=== PATIENT | male | born 1940 | race Caucasian/White ===

== ENCOUNTER → 2016-07-25 | Outpatient (CLI) | payer OTHER ==
--- NOTE | 2016-07-25 16:32 | DI ---
XR KNEE CMPT 4 OR MORE VWS,07/25/2016 2:07 PM: Clinical History: Right knee pain. Previous Exam: None at this facility. Findings: 4 views of the right knee are obtained, and demonstrate anatomic alignment without fractures. There i s loss of joint space involving the medial compartment. There is calcification within the lateral and medial menisci. There is a small right knee joint effusion. Impression: Mild early degenerative osteoarthritis manifested by loss of medial joint space. Calcifications in the region of the menisci most consistent with hydroxyapatite deposition disease.
== END ==
LOC: ORTHO 14:10
PROVIDERS: ATTEND Physician Assistant
DX: M25.561 Pain in right knee (principal); M25.461 Effusion, right knee; M17.11 Unilateral primary osteoarthritis, right knee; M11.061 Hydroxyapatite deposition disease, right knee; F17.290 Nicotine dependence, other tobacco product, uncomplicated
CPT/HCPCS: 73564

== ENCOUNTER → 2016-08-24 | Outpatient (CLI) | payer OTHER | LOC: MMPC 10:00 | PROVIDERS: ATTEND Physician Assistant | DX: M25.561 Pain in right knee (principal); M17.11 Unilateral primary osteoarthritis, right knee | CPT/HCPCS: 99213; G0463 ==

== ENCOUNTER → 2016-08-28 | Outpatient (CLI) | payer OTHER ==
--- NOTE | 2016-08-28 13:11 | DI ---
MRI LOW EXTREMITY JNT W/O CN,08/28/2016 8:40 AM: Clinical History: Fusion of right knee joint Previous Exam: Plain films performed July 25, 2016 Findings: Multiplanar MR images are obtained through the right knee without contrast. Bony alignment is anatomi c. There is sclerosis involving the weightbearing surface of the medial femoral condyle. There is als o some associated marrow edema of the medial femoral condyle. There is some mild thinning of the articular cartilage of the medial patellar facet. There is thinnin g of the articular cartilage of the lateral compartment as well without any full-thickness defects. T here is some complete thickness chondromalacia involving the anterior portion of the medial femoral c ondyle medially with some subchondral cyst formation as well. There is a large knee joint effusion. There is a complex tear of the posterior horn of the medial meniscus extending into the body of the m edial meniscus. The anterior and posterior cruciate ligaments are intact. There is some mild edema involving the free edge of horn of the lateral meniscus without a definite t ear identified. The anterior and posterior cruciate ligaments are intact. Medial and lateral collateral ligaments are also intact. The major vascular flow voids are unremarkable. Signal within the musculature is also unremarkable. Impression: 1. Large knee joint effusion. 2. Full-thickness osteochondral defects within the medial compartment with chondral edema. 3. Complex tear of the posterior horn and body of the medial meniscus. This may be postsurgical as th is ligament mastectomy.
== END ==
LOC: MRI 08:36
PROVIDERS: ATTEND Physician Assistant
DX: M25.461 Effusion, right knee (principal); S83.231A Complex tear of medial meniscus, current injury, right knee, initial encounter
CPT/HCPCS: 73721

== ENCOUNTER 2017-08-23 16:10 | Observation (INO) ==
[2017-08-23] MEDS ORDERED: LABETALOL 20 MG/4 ML (5 MG/1 ML) SYRINGE IVP ONE (16:46)
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
[2017-08-23 17:14] LABS: VENOUS PH 7.51 (7.32-7.42)
[2017-08-23 17:23] LABS: BILIRUBIN,URINE NEGATIVE (NEG); CLARITY,URINE CLEAR (CLEAR); COLOR,URINE YELLOW (Y); GLUCOSE, URINE (UA) NEGATIVE (NEG); OCCULT BLOOD,URINE NEGATIVE (NEG); PROTEIN,URINE NEGATIVE (NEG); UROBILINOGEN,URINE 0.2 EU/dL (0.2)
[2017-08-23 17:29] LABS: URINE SAMPLE TYPE CLEAN CATCH URINE
--- NOTE | 2017-08-23 17:38 | PDOC ---
HPI - History of Present Illness History of Present Illness: This very nice 77-year-old gentleman with no significant past medical history was sent by the clinic to the ER for increased shortness of breath he underwent antibiotic therapy and 2 rounds of prednisone and because of strep throat diagnosis earlier in the month he was also given neb treatments but these made him worse he is also noticed some increased swelling in his legs lately in the ER as blood pressure was elevated in the 180 range and also only sleep in 15-20 minutes at a time he constantly wakes up shortness of breath he does admit smoking to about 15 cigars a day he lives about [place] of town and even in the ER he while they were measuring his blood pressure he kept falling asleep. He has settled into his bed his legs have been swelling over the past couple months. He does not want a Silva tonight but tomorrow Past Medical History Tobacco Use: Former Smoker In the Past 12 Months, Have Used or Abuse Any of the Following Substance: None Medication / Allergies Home Medications: Home Medications 3 Medication Instructions Recorded Confirmed Type Acetaminophen [Tylenol] 650 mg PO Q4-6H tab 08/24/16 08/23/17 History Ibuprofen [Advil] 1 tab PO QD tab 08/24/16 08/23/17 History Allergies/Adverse Reactions: Allergies 3 Allergy/AdvReac Type Severity Reaction Status Date / Time albuterol AdvReac SWELLING Verified 08/23/17 17:56 Review of Systems - Respiratory Respiratory: REPORTS: Cough - Cardiovascular Cardiovascular: DENIES: Negative System Review, Chest Pain, Edema, Syncope, Palpitations, Orthopnea, Paroxysmal Nocturnal Dyspnea, Other, See HPI - Gastrointestinal Gastrointestinal / Abdominal: DENIES: Negative System Review, Nausea, Vomiting, Diarrhea, Constipation, Abdominal Pain, Bloody Stool, Poor Appetite, Heartburn, Regurgitation, Bloating, Lactose Intolerance, Melena, Bright Red Blood per Rectum, Other, See HPI Exam - Vitals Vital Signs: Vital Signs Temperature 98.7 F Temperature Source Temporal Artery Scan Pulse Rate [Pulse Oximeter] 56 Respiratory Rate 22 Blood Pressure [Left Arm] 187/102 Pulse Ox 95 Oxygen Delivery Method Room Air Height 5 ft 10 in Weight 243 lb - General General Appearance: No Acute Distress, Cooperative, Disheveled - Head Head Exam: Normal Inspection, Normocephalic, Atraumatic - Eye Eye Exam: POSITIVE: Normal Appearance, PERRL, EOMI, No Scleral Icterus - Respiratory Respiratory Exam: POSITIVE: Decreased Breath Sounds. NEGATIVE: Rales, Rhonci - Cardiovascular Cardiovascular Exam: POSITIVE: RRR, No Murmur, No Clicks, No Gallops, No Rubs, PMI Non-Displaced - GI/Abdominal GI/Abdominal Exam: POSITIVE: Normal Bowel Sounds, Non Tender, Non Distended, Soft, No Masses, No Hepatomegaly, No Splenomegaly, No Organomegaly - Extremities Extremities Exam: POSITIVE: No Clubbing Present, No Cyanosis Present, +2 Edema - Neurological Neurological Exam: POSITIVE: Alert, Oriented x 3, No Facial Droop, Speech Intact / Clear - Psychiatric Psychiatric Exam: POSITIVE: Normal Affect, Normal Mood Assessment and Plan - Patient Problems (1) COPD (chronic obstructive pulmonary disease) Current Visit: Yes Status: Acute Code(s): J44.9 - Chronic obstructive pulmonary disease, unspecified (2) Hypertensive urgency Current Visit: Yes Status: Acute Code(s): I16.0 - Hypertensive urgency (3) Sleep apnea Current Visit: Yes Status: Acute Code(s): G47.30 - Sleep apnea, unspecified - Assessment / Plan Additional Assessment/Plan Details: #1 hypertensive urgency 0.1 and clonidine +10 of Norvasc monitor on telemetry check magnesium level #2 COPD with emphysema we'll order a CAT scan of his chest heavy smoker with cigars #3 sleep apnea most likely severe oxygen #4 to ty this altogether most likely the patient has cor pulmonale with right- sided heart failure with elevated BNP and pulmonary hypertension I will diurese him with Lasix order an echo and most likely will need a sleep study as an outpatient
[2017-08-23] MEDS ORDERED: ACETAMINOPHEN 325 MG TABLET PO PRN (17:48)
[2017-08-23] MEDS ORDERED: CALCIUM CARBONATE 500 MG (TUMS) CHEWABLE TABLET PO PRN (17:48)
[2017-08-23] MEDS ORDERED: DOCUSATE 100 MG CAPSULE PO PRN (17:48)
[2017-08-23] MEDS ORDERED: ONDANSETRON 4 MG/2 ML VIAL IVP PRN (17:48)
[2017-08-23] MEDS ORDERED: LIDOCAINE W/ SODIUM BICARB 0.5 ML SYR SUBD PRN (17:48)
[2017-08-23] MEDS ORDERED: FUROSEMIDE 10 MG/1 ML - 2 ML VIAL IVP ONE (17:48)
[2017-08-23] MEDS ORDERED: CloNIDine Tab 0.1 MG TABLET PO ONE (17:48)
[2017-08-23] MEDS: HEPARIN 5000 UNIT/1 ML SUBCUT SCH (18:28)
--- NOTE | 2017-08-23 18:53 | DI ---
CT CTA Chest Non-Coronary O,08/23/2017 5:38 PM: Clinical History: Shortness of breath and elevated d-dimer. Previous Exam: None at this facility. Findings: Multiple helically acquired CT images are obtained through the chest following a CT angiogram protoco l after intravenous administration of 95 cc of Isovue-370. The pulmonary arteries are normal and symmetric without filling defect or truncation. There is no infiltrate or effusion. Degenerative changes of the thoracic spine are seen. There is no lymphadenopathy. The aorta is unremarkable. Visualized portions of the upper abdomen are unremarkable. Visualized portions of the thyroid are wit hin normal limits. Impression: 1. No evidence of pulmonary embolism.
[2017-08-24] MEDS: HEPARIN 5000 UNIT/1 ML SUBCUT SCH ×3 (02:53→17:44)
[2017-08-24 05:25] LABS: BASOPHILS # (AUTO) 0.02 10*3/UL; BASOPHILS % (AUTO) 0.3 % (0-1); EOSINOPHILS # (AUTO) 0.04 10*3/UL; EOSINOPHILS % (AUTO) 0.5 % (0-8); Hematocrit [HCT] 41.8 % (42.0-52.0); Hemoglobin [HGB] 14.1 g/dL (14.0-18.0); LYMPHOCYTES # (AUTO) 2.31 10*3/uL; MEAN CORPUSCULAR HEMOGLOBIN 32.2 PG (27-31); MEAN CORPUSCULAR HGB CONC 33.7 g/dL (33-37); MEAN CORPUSCULAR VOLUME 95.4 FL (80-90); MEAN PLATELET VOLUME 10.4 FL (7.4-12.2); MONOCYTES # (AUTO) 1.14 10*3/UL (0.3-0.8); MONOCYTES % (AUTO) 14.6 % (5-15); NEUTROPHILS # (AUTO) 4.27 10*3/UL; NEUTROPHILS % (AUTO) 54.8 % (50-80); RED BLOOD COUNT 4.38 10^6/uL (4.70-6.10)
[2017-08-24 05:41] LABS: BLOOD UREA NITROGEN 15 mg/dL (7-22); BUN/CREATININE RATIO 18.75 (6-20)
[2017-08-24 05:43] LABS: PLATELET MORPHOLOGY COMMENT NORMAL MORPHOLOGY (NORM); RBC MORPHOLOGY COMMENT NORMAL MORPHOLOGY (NORM); WBC MORPHOLOGY COMMENT NORMAL MORPHOLOGY (NORM)
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
--- NOTE | 2017-08-24 15:10 | DI ---
MRI Brain WO Contrast,08/24/2017 1:45 PM: Clinical History: Double vision and nystagmus. Previous Exam: None at this facility. Findings: Multiplanar MR images are obtained through the brain without contrast, and demonstrate mild diffuse a ge-related volume loss. There is no hemorrhage nor midline shift. There is no abnormally restricted diffusion. There are scattered areas of increased FLAIR and T2 signal within the periventricular white matter. There is some rightward deviation of the bony nasal septum. The intraorbital structures are unremarkable. The paranasal sinuses are also unremarkable. The major vascular flow voids are within normal limits. Internal auditory canals are unremarkable. The cerebellopontine angles are unremarkable. Impression: Scattered areas of increased FLAIR and T2 signal most consistent with small vessel ischemic changes. No acute intracranial pathology.
--- NOTE | 2017-08-24 15:30 | PT.PROG ---
Progress Note Progress Note: S. Patient stated that he is feeling good, a little dizzy however he agreed to go to the therapy gym. O. patient ambulated 175 feet to the therapy gym, then performed balance activities in the form of; tandem walking x 3 laps, balance grid x 3, balance on uneven surface 2x30 seconds. Patient was left with OT for further therapy. A. Patient struggles with balance activities and required frequent rest breaks to recover from dizziness during activity. Patient would continue to benefit from skilled therapy to increase endurance and balance. P. Continue POC.
[2017-08-24] MEDS: Petrolatum, White Jelly 5 APPLIC/5 GM PACKET TOPICAL SCH ×2 (17:43→20:26)
[2017-08-24] MEDS: POTASSIUM CHLORIDE 20 MEQ TAB PO SCH ×2 (17:44→20:25)
[2017-08-25 00:36] VITALS: RESP 20
[2017-08-25] MEDS: HEPARIN 5000 UNIT/1 ML SUBCUT SCH (02:06)
[2017-08-25] MEDS ORDERED: LISINOPRIL 10 MG TABLET PO ONE (03:03)
[2017-08-25 06:55] LABS: BLOOD UREA NITROGEN 17 mg/dL (7-22); BUN/CREATININE RATIO 24.28 (6-20)
[2017-08-25] MEDS: POTASSIUM CHLORIDE 20 MEQ TAB PO SCH (08:32)
[2017-08-25] MEDS: Petrolatum, White Jelly 5 APPLIC/5 GM PACKET TOPICAL SCH (08:33)
[2017-08-25] MEDS ORDERED: Multivitamin Tab 1 TAB PO SCH (09:00)
--- NOTE | 2017-08-25 09:03 | DCSUMMARY ---
Hospitalization Summary Admit Date: 08/23/2017 Discharge Date: 08/25/17 Hospital Course: Discharge diagnoses 1. Hypertensive urgency 2. Possible sleep apnea 3. Hypokalemia 4. Possible COPD 5. Cholelithiasis 6. Small vessel ischemic changes Hospital course This is a 77 years old male with nausea for past medical history who was sent to the ER because of fatigue and shortness of breath. Apparently earlier this month he was diagnosed with strep throat at that time treated with antibiotics, prednisone. In addition to the sore throat he did report that there was a drainage going to the back of his throat and that would wake him up as he was having a feeling of choking sensation so he wasn't sleeping well. He went again to the ER and they put him on a second round of steroid. He did have some swelling in his legs. He did report some shortness of breath but this he said is been going on for long period of time. He is very tired. When he Came into the ER he was found to have elevated blood pressure in the 180 to the 200 range so he was admitted. Was admitted by Dr. Huggins please see his note. Patient was put on [facility] for blood pressure medications. An echo was ordered but could not be performed because the poultry field service technician was not around. I saw him the next day he was making improvement we did notice that he had some nystagmus but he did mention that he has problem with his vision for 15 years. because of the nystagmus being bilateral we did a CT and MRI of his head which showed ischemic changes. He did have a CT of his chest which showed no PE. The next day he was feeling better and sleeping better we thought he could be discharged home on blood pressure medications. Did tell him though he needs to to have sleep study and also an echocardiogram as an outpatient. Probably also a spirometry this can all be done as an outpatient. My review of the CT of the chest showed that is there is cholelithiasis this need follow-up as an outpatient. Laboratory Results 08/25/17 Range/Units 04:25 Sodium 139 (135-145) meq/L Potassium 3.2 L (3.8-5.2) meq/L Chloride 102 (98-112) meq/L Carbon Dioxide 31 (23-33) meq/L Anion Gap 6 (5-20) BUN 17 (7-22) mg/dL Creatinine 0.7 (0.70-1.50) mg/dL BUN/Creatinine Ratio 24.28 H (6-20) Glucose 94 (78-110) mg/dL Calculated Osmolality 289.0 (267-292) mOsm/kg Calcium 8.7 (8.7-10.7) mg/dL Discharge instruction Diet low-salt Activity as started Medications Home Medications Acetaminophen [Tylenol] 650 mg PO Q4-6H tab 08/24/16 [History Confirmed ] Ibuprofen [Advil] 1 tab PO QD tab 08/24/16 [History Confirmed 08/23/17] Amlodipine Besylate [Norvasc] 10 mg PO DAILY #30 tab 08/25/17 [Rx] Lisinopril 5 mg PO DAILY #30 tab 08/25/17 [Rx] Potassium Chloride [Klor-Con] 20 meq PO BID #8 tab 08/25/17 [Rx] Follow-up with Dr. Decker as scheduled Exam - Vitals Vital Signs: Vital Signs Temperature 98.5 F Temperature Source Oral Pulse Rate [Pulse Oximeter] 57 Pulse Rate 55 Respiratory Rate 20 Blood Pressure [Left Arm] 155/79 Pulse Ox 96 Oxygen Delivery Method Room Air Height 5 ft 10 in Weight 282 lb 9.6 oz - General General Appearance: No Acute Distress, Cooperative - Head Head Exam: Normal Inspection - Eye Eye Exam: POSITIVE: Normal Appearance - ENT ENT Exam: POSITIVE: Normal Exam - Neck Neck Exam: Normal Inspection - Respiratory Respiratory Exam: POSITIVE: Clear to Auscultation - Bilaterally - Cardiovascular Cardiovascular Exam: POSITIVE: RRR - GI/Abdominal GI/Abdominal Exam: POSITIVE: Normal Bowel Sounds, Non Tender, Non Distended, Soft, No Organomegaly - Rectal Rectal Exam: POSITIVE: Deferred - External Exam: POSITIVE: Deferred - Extremities Extremities Exam: POSITIVE: Normal Inspection - Back Back Exam: POSITIVE: Normal Inspection - Neurological Neurological Exam: POSITIVE: Alert, Oriented x 3, CN II-XII Intact, No Facial Droop, Speech Intact / Clear - Psychiatric Psychiatric Exam: POSITIVE: Normal Affect Patient Problems - Patient Problem List (1) Hypertensive urgency Status: Acute Code(s): I16.0 - Hypertensive urgency Category: Medical (2) COPD (chronic obstructive pulmonary disease) Status: Acute Code(s): J44.9 - Chronic obstructive pulmonary disease, unspecified Category: Medical (3) Sleep apnea Status: Acute Code(s): G47.30 - Sleep apnea, unspecified Category: Medical (4) Nystagmus Status: Acute Code(s): H55.00 - Unspecified nystagmus Category: Medical
[2017-08-25 09:11] VITALS: BP 186/99; TEMP 97.8; O2SAT 95
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
--- NOTE | 2017-08-27 10:42 | OT PM DAY ---
Diagnosis : Dizziness, Shortness of Breath PM - Occupational Therapy S: The patient reports he is feeling a little bit better. He states he still gets a little bit dizzy when he turns. O: Today we had the patient stand and do wall pulleys with 6 kilograms for shoulder extension, 4 kilograms for shoulder adduction, 6 kilograms for rows, and 4 kilograms for internal/external rotation and biceps curls x15 repetitions bilaterally. We worked on turning with head turns and walking with head turns to assess his vestibular; he does get a little bit off balance, but with his cane he is able to self correct. He reports he knows he is going to have to take more time to improve his overall abilities by not turning so fast. A: The patient is waiting on MRI results. We are going to continue working on balance and strength. P: Continue seeing patient BID during the week and one time per day over the weekend until discharge. JESSIE
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
== END 2017-08-25 10:22 | disposition home or self-care (01) ==
LOC: ER 16:10 → MED/SURG 16:10
PROVIDERS: ADMIT Internal Medicine; ATTEND Internal Medicine